=== PATIENT | male | born 1960 | race Caucasian/White ===

== ENCOUNTER 2021-01-22 14:04 | Emergency (ER) | payer MEDICARE, OTHER ==
[2021-01-22 14:26] LABS: HEMOGLOBIN 14.2 gm/dl (14.0-17.5); RED BLOOD COUNT 4.54 M/UL (4.20-5.50); WHITE BLOOD COUNT 6.4 K/UL (4.5-11.0)
[2021-01-22 14:54] LABS: BUN/CREATININE RATIO 31 (0-10)
== END 2021-01-22 18:13 | disposition short-term general hospital (02) ==
LOC: ER1 14:04
PROVIDERS: Physician Assistant
DX: I63.9 Cerebral infarction, unspecified (principal); G45.9 Transient cerebral ischemic attack, unspecified; R29.703 NIHSS score 3; F17.200 Nicotine dependence, unspecified, uncomplicated
CPT/HCPCS: 70450; 71045; 80053; 82550; 82553; 83874; 84484; 85025; 93005; 96374; 99285; J2060; J2997

== ENCOUNTER 2021-04-15 00:44 | Emergency (ER) | payer MEDICARE, OTHER ==
[2021-04-15 01:46] LABS: HEMOGLOBIN 14.1 gm/dl (14.0-17.5); RED BLOOD COUNT 4.52 M/UL (4.20-5.50)
[2021-04-15 02:12] LABS: BUN/CREATININE RATIO 19 (0-10)
== END 2021-04-15 05:06 | disposition home or self-care (01) ==
LOC: ER1 00:44
PROVIDERS: Family Medicine
DX: R20.2 Paresthesia of skin (principal); I11.9 Hypertensive heart disease without heart failure; Z86.73 Personal history of transient ischemic attack (TIA), and cerebral infarction without residual deficits
CPT/HCPCS: 70496; 70498; 71045; 80053; 82550; 82553; 83874; 84484; 85025; 93005; 99285; Q9967

== ENCOUNTER 2021-07-05 01:51 | Emergency (ER) | payer MEDICARE, OTHER ==
[2021-07-05 02:04] LABS: HEMOGLOBIN 15.1 gm/dl (14.0-17.5); RED BLOOD COUNT 4.88 M/UL (4.20-5.50); WHITE BLOOD COUNT 9.3 K/UL (4.5-11.0)
[2021-07-05 02:27] LABS: BUN/CREATININE RATIO 34 (0-10)
== END 2021-07-05 02:18 | disposition left against medical advice (07) ==
LOC: ER1 01:51
PROVIDERS: Family Medicine
DX: R07.89 Other chest pain (principal); R06.02 Shortness of breath; I10 Essential (primary) hypertension; Z86.73 Personal history of transient ischemic attack (TIA), and cerebral infarction without residual deficits
CPT/HCPCS: 71045; 80053; 82550; 82553; 84484; 85025; 93005; 99283